=== PATIENT | male | born 1985 | race American Indian/Alaskan Native ===

== ENCOUNTER 2019-05-03 15:00 | Emergency (ER) | payer OTHER ==
[2019-05-03] MEDS ORDERED: METOCLOPRAMIDE 10 MG/2mL INJ ONE (15:55)
[2019-05-03] MEDS ORDERED: DIPHENHYDRAMINE 50 MG/ML VIAL ONE (15:56)
[2019-05-03] MEDS ORDERED: NA CHLORIDE 0.9% 500 ML ONE (15:56)
[2019-05-03] MEDS ORDERED: KETOROLAC 30 MG/ML INJ ONE (15:56)
--- NOTE | 2019-05-03 16:27 | RAD REPORT ---
EXAM DESCRIPTION: CT - Head Brain Wo Cont - 05/03/2019 4:12 pm CLINICAL HISTORY: headache COMPARISON: <Comparisons> TECHNIQUE: Axial 5 mm thick images of the head were obtained without IV contrast. All CT scans are performed using dose optimization technique as appropriate and may include automated exposure control or mA/KV adjustment according to patient size. FINDINGS: No intracranial hemorrhage, mass, edema or shift of mid-line structures. No acute infarcti on changes seen. No abnormal extra-axial fluid collections. Ventricles are normal. Mastoid air cells and visualized portions of the paranasal sinuses are clear. No acute bony findings. IMPRESSION: Negative non-contrast CT head examination.
--- NOTE | 2019-05-03 16:57 | ER ---
Nurse's Notes [facility] Name: Mannie Alonso Age: 33 yrs Sex: Male : 1985 Arrival Date: 05/03/2019 Time: 15:04 Bed 25 Private MD: Diagnosis: Influenza due to certain identified influenza viruses;Headache Presentation: 05/03 15:05 Presenting complaint: Patient states: i cant bear my headaches anymore, i [place], he gave me a b12 shot and antibiotic and it didn't feel me good and then today i can bear the pain, my cough is worse and worse and taking these medicines its getting worse and worse, the pain is in the back RIGHT side of my head and on my forehead and my sinuses. Transition of care: patient was not received from another setting of care. Onset of symptoms was May 03, 2019. Risk Assessment: Do you want to hurt yourself or someone else? Patient reports no desire to harm self or others. Initial Sepsis Screen: Does the patient meet any 2 criteria? HR > 90 bpm. No. Patient's initial sepsis screen is negative. Does the patient have a suspected source of infection? No. Patient's initial sepsis screen is negative. Care prior to arrival: None. 15:05 Method Of Arrival: Ambulatory tw2 15:05 Acuity: TAMI 3 tw2 Triage Assessment: 15:06 Headache History: Denies prior headaches. General: Appears in no apparent distress. tw2 Behavior is calm, cooperative, appropriate for age. Pain: Complains of pain in forehead, right side of the back of head and right occipital area Pain currently is 10 out of 10 on a pain scale. Pain began 2-3 days ago. it started tuesday Also complains of nausea. Neuro: Reports headache. Historical: - Allergies: 15:10 No Known Allergies; tw2 - Home Meds: 15:10 amoxicillin 500 mg Oral cap 1 cap every 8 hours [Active]; prednisone 10 mg Oral tab tw2 once daily [Active]; Virtussin AC 10-100 mg/5 mL oral liqd 10 mL every 4 hours [Active]; ibuprofen 600 mg Oral tab 1 tab 3 times per day [Active]; - PMHx: 15:10 None; tw2 - PSHx: 15:10 None; tw2 - Immunization history:: Adult Immunizations. - Coronavirus screen:: The patient has NOT traveled to [place], [place], or [place] in the past 14 days. The patient HAS traveled to [place], [place], or [place] in the past 14 days. The patient DOES HAVE a fever and/or cough. Mask placed on patient and transported to negative pressure isolation room. back from [facility] Mar 21, 2019. - Social history:: Smoking status: . Screenin:43 Abuse screen: Denies threats or abuse. Denies injuries from another. Nutritional mg2 screening: No deficits noted. Tuberculosis screening: No symptoms or risk factors identified. Fall Risk IV access (20 points). Assessment: 16:42 General: Appears in no apparent distress. comfortable, Behavior is calm, cooperative. mg2 Pain: Complains of pain in right occipital area and right side of the back of head and forehead. Neuro: Level of Consciousness is awake, alert, obeys commands, Oriented to person, place, time, situation. Neuro: Reports headache. Cardiovascular: Capillary refill < 3 seconds Patient's skin is warm and dry. Respiratory: Airway is patent Respiratory effort is even, unlabored, Respiratory pattern is regular, symmetrical. GI: No signs and/or symptoms were reported involving the gastrointestinal system. : No signs and/or symptoms were reported regarding the genitourinary system. EENT: No signs and/or symptoms were reported regarding the EENT system. Derm: Skin is intact, is healthy with good turgor, Skin is pink, warm \T\ dry. normal. Musculoskeletal: Circulation, motion, and sensation intact. Capillary refill < 3 seconds. 17:19 Reassessment: Patient appears in no apparent distress at this time. Patient states mg2 feeling better. Vital Signs: 15:07 BP 136 / 87; Pulse 108; Resp 18; Temp 98.5(O); Pulse Ox 97% on R/A; Weight 87.54 kg tw2 (R); Height 5 ft. 6 in. (167.64 cm); Pain 10/10; 16:43 BP 112 / 78; Pulse 89; Resp 18; Pulse Ox 100% on R/A; mg2 15:07 Body Mass Index 31.15 (87.54 kg, 167.64 cm) tw2 ED Course: 15:04 Patient arrived in ED. mr 15:05 Donta Tariq FNP-C is PHCP. la1 15:05 Danielito Pagan MD is Attending Physician. la1 15:06 Triage completed. tw2 15:06 Arm band placed on. tw2 15:49 Rcio Padilla, RN is Primary Nurse. mg2 15:50 No provider procedures requiring assistance completed. Inserted saline lock: 20 gauge ls4 in left antecubital area, using aseptic technique. 16:43 Patient has correct armband on for positive identification. mg2 17:19 IV discontinued, intact, bleeding controlled, No redness/swelling at site. Pressure mg2 dressing applied. Administered Medications: 16:00 Drug: NS 0.9% 500 ml Route: IV; Rate: bolus; Site: left antecubital; mg2 17:17 Follow up: Response: No adverse reaction; IV Status: Completed infusion; IV Intake: mg2 500ml 16:01 Drug: Benadryl 25 mg Route: IVP; Site: left antecubital; mg2 17:18 Follow up: Response: No adverse reaction; Marked relief of symptoms mg2 16:01 Drug: Reglan 10 mg Route: IVP; Site: left antecubital; mg2 17:18 Follow up: Response: No adverse reaction; Marked relief of symptoms mg2 16:02 Drug: TORadol - Ketorolac 15 mg Route: IVP; Site: left antecubital; mg2 17:18 Follow up: Response: No adverse reaction; Marked relief of symptoms mg2 Intake: 17:17 IV: 500ml; Total: 500ml. mg2 Outcome: 16:55 Discharge ordered by . la1 17:19 Discharged to home ambulatory, with family. mg2 17:19 Condition: good 17:19 Discharge instructions given to patient, family, Instructed on discharge instructions, follow up and referral plans. Demonstrated understanding of instructions, follow-up care. 17:20 Patient left the ED. mg2 Signatures: Maria Eugenia Tate Lee, JUNIOR SALES REPRESENTATIVE-C JUNIOR SALES REPRESENTATIVE-Cla1 Mary Anne Perry RN RN tw2 Rico Padilla, TANYA RN mg2 Lillian Strickland RN RN ls4
--- NOTE | 2019-05-03 16:57 | EDPHYS ---
Physician Documentation [facility] Name: Mannie Alonso Age: 33 yrs Sex: Male : 1985 Arrival Date: 05/03/2019 Time: 15:04 Bed 25 Private MD: ED Physician Danielito Pagan HPI: 05/03 15:42 This 33 yrs old Other Male presents to ER via Ambulatory with complaints of Headache. la1 15:42 The patient complains of pain to the occipital area radiating to forehead. The patient la1 describes the headache as aching, constant. Onset: The symptoms/episode began/occurred 3 day(s) ago. Associated signs and symptoms: Pertinent negatives: fever, malaise, nausea. Severity of symptoms: At its worst the pain was mild. Headache History: Denies prior headaches. The symptoms are alleviated by nothing. the symptoms are aggravated by nothing. The patient has not experienced similar symptoms in the past. Historical: - Allergies: 15:10 No Known Allergies; tw2 - Home Meds: 15:10 amoxicillin 500 mg Oral cap 1 cap every 8 hours [Active]; prednisone 10 mg Oral tab tw2 once daily [Active]; Virtussin AC 10-100 mg/5 mL oral liqd 10 mL every 4 hours [Active]; ibuprofen 600 mg Oral tab 1 tab 3 times per day [Active]; - PMHx: 15:10 None; tw2 - PSHx: 15:10 None; tw2 - Immunization history:: Adult Immunizations. - Coronavirus screen:: The patient has NOT traveled to [place], [place], or [place] in the past 14 days. The patient HAS traveled to [place], [place], or [place] in the past 14 days. The patient DOES HAVE a fever and/or cough. Mask placed on patient and transported to negative pressure isolation room. back from [facility] Mar 21, 2019. - Social history:: Smoking status: . ROS: 17:32 Constitutional: Negative for fever, chills, and weight loss, Eyes: Negative for injury, la1 pain, redness, and discharge, ENT: Negative for injury, pain, and discharge, Neck: Negative for injury, pain, and swelling, Cardiovascular: Negative for chest pain, palpitations, and edema. 17:32 Abdomen/GI: Negative for abdominal pain, nausea, vomiting, diarrhea, and constipation, Back: Negative for injury and pain, : Negative for injury, bleeding, discharge, and swelling, MS/Extremity: Negative for injury and deformity, Skin: Negative for injury, rash, and discoloration. 17:32 Endocrine: Negative for neck swelling, polydipsia, polyuria, polyphagia, and marked weight changes. 17:32 Respiratory: Positive for cough. 17:32 Neuro: Positive for headache. Exam: 17:33 Constitutional: This is a well developed, well nourished patient who is awake, alert, la1 and in no acute distress. Head/Face: Normocephalic, atraumatic. Eyes: Pupils equal round and reactive to light, extra-ocular motions intact. ENT: Nares patent. No nasal discharge, no septal abnormalities noted. Tympanic membranes are normal and external auditory canals are clear. Oropharynx with no redness, swelling, or masses, exudates, or evidence of obstruction, uvula midline. Mucous membranes moist. Chest/axilla: Normal chest wall appearance and motion. Nontender with no deformity. No lesions are appreciated. Cardiovascular: Regular rate and rhythm with a normal S1 and S2. No gallops, murmurs, or rubs. Normal PMI, no JVD. No pulse deficits. Respiratory: Lungs have equal breath sounds bilaterally, clear to auscultation Abdomen/GI: Soft, non-tender, Back: No costovertebral tenderness. Skin: Warm, dry with normal turgor. Normal color with no rashes, no lesions, and no evidence of cellulitis. Neuro: Awake and alert, GCS 15, oriented to person, place, time, and situation. Cranial nerves II-XII grossly intact. Motor strength 5/5 in all extremities. Sensory grossly intact. Cerebellar exam normal. Normal gait. Vital Signs: 15:07 BP 136 / 87; Pulse 108; Resp 18; Temp 98.5(O); Pulse Ox 97% on R/A; Weight 87.54 kg tw2 (R); Height 5 ft. 6 in. (167.64 cm); Pain 10/10; 16:43 BP 112 / 78; Pulse 89; Resp 18; Pulse Ox 100% on R/A; mg2 15:07 Body Mass Index 31.15 (87.54 kg, 167.64 cm) tw2 MDM: 15:16 Patient medically screened. la1 16:55 Data reviewed: vital signs, nurses notes, lab test result(s), radiologic studies, I la1 have discussed the patient's presentation/case with the attending Emergency Department Physician; and as a result, I will discharge patient. Data interpreted: Pulse oximetry: on room air is 100 %. Interpretation: normal. Counseling: I had a detailed discussion with the patient and/or guardian regarding: the historical points, exam findings, and any diagnostic results supporting the discharge/admit diagnosis, lab results, the need for outpatient follow up, a family practitioner, to return to the emergency department if symptoms worsen or persist or if there are any questions or concerns that arise at home. Special discussion: I discussed with the patient/guardian that the patient's current presentation does not indicate dosing of antibiotics. They should follow-up with their primary care provider and return if the symptoms persist or progress. 05/03 15:26 Order name: Flu la1 05/03 16:00 Order name: Flu ls4 05/03 15:26 Order name: CT Head Brain wo Cont la1 05/03 16:31 Order name: Influenza Screen (A ; Complete Time: 16:41 EDMS 05/03 15:26 Order name: IV; Complete Time: 15:59 la1 Administered Medications: 16:00 Drug: NS 0.9% 500 ml Route: IV; Rate: bolus; Site: left antecubital; mg2 17:17 Follow up: Response: No adverse reaction; IV Status: Completed infusion; IV Intake: mg2 500ml 16:01 Drug: Benadryl 25 mg Route: IVP; Site: left antecubital; mg2 17:18 Follow up: Response: No adverse reaction; Marked relief of symptoms mg2 16:01 Drug: Reglan 10 mg Route: IVP; Site: left antecubital; mg2 17:18 Follow up: Response: No adverse reaction; Marked relief of symptoms mg2 16:02 Drug: TORadol - Ketorolac 15 mg Route: IVP; Site: left antecubital; mg2 17:18 Follow up: Response: No adverse reaction; Marked relief of symptoms mg2 Disposition: 17:38 Co-signature as Attending Physician, Danielito Pagan MD. rn Disposition: 05/03/19 16:55 Discharged to Home. Impression: Influenza due to certain identified influenza viruses, Headache. - Condition is Stable. - Discharge Instructions: General Headache Without Cause, Influenza, Adult. - Work release form, Medication Reconciliation Form, Thank You Letter form. - Follow up: Private Physician; When: 2 - 3 days; Reason: Recheck today's complaints, Re-evaluation by your physician. - Problem is new. - Symptoms have improved. Signatures: Dispatcher [employer] EDMS Danielito Pagan MD MD rn Donta Tariq, SUTURE GAUGER-C SUTURE GAUGER-Cla1 Mary Anne Perry RN RN tw2 Rico Padilla RN RN mg2 Corrections: (The following items were deleted from the chart) 17:20 16:55 05/03/2019 16:55 Discharged to Home. Impression: Influenza due to certain mg2 identified influenza viruses; Headache. Condition is Stable. Forms are Medication Reconciliation Form, Thank You Letter, Antibiotic Education, Prescription Opioid Use. Follow up: Private Physician; When: 2 - 3 days; Reason: Recheck today's complaints, Re-evaluation by your physician. Problem is new. Symptoms have improved. la1
[2019-05-03 17:55] VITALS: TEMP 98.5
[2019-05-03 17:57] VITALS: BP 112/78; O2SAT 100
== END 2019-05-03 17:20 | disposition home or self-care (01) ==
LOC: ER 15:00
DX: J10.89 Influenza due to other identified influenza virus with other manifestations (principal)
CPT/HCPCS: 96361; 87804 ×2; 70450; 96375; 96374; 99283; J2765; J1200; J7040

== ENCOUNTER 2020-12-25 23:49 | Emergency (ER) | payer OTHER ==
[2020-12-26] MEDS ORDERED: KETOROLAC 30 MG/ML INJ ONE (01:57)
--- NOTE | 2020-12-26 02:10 | ER ---
Nurse's Notes [facility] Name: Mannie Alonso Age: 35 yrs Sex: Male : 1985 Arrival Date: 12/25/2020 Time: 23:52 Bed DIS2 Private MD: Diagnosis: Dorsalgia, unspecified Presentation: 12/26 00:13 Chief complaint: Patient states: non-radiating left upper back pain that started around sj1 1930 while sitting in chair, denies injury, took advil at 2220. Back pain worse with deep breathing. Coronavirus screen: Vaccine status: Patient reports receiving the 2nd dose of the covid vaccine. Date April 2020. Ebola Screen: Patient negative for fever greater than or equal to 101.5 degrees Fahrenheit, and additional compatible Ebola Virus Disease symptoms Patient denies exposure to infectious person. Patient denies travel to an Ebola-affected area in the 21 days before illness onset. Initial Sepsis Screen: Does the patient meet any 2 criteria? No. Patient's initial sepsis screen is negative. Does the patient have a suspected source of infection? No. Patient's initial sepsis screen is negative. Risk Assessment: Do you want to hurt yourself or someone else? Patient reports no desire to harm self or others. Onset of symptoms was December 25, 2020 at 19:30. 00:13 Method Of Arrival: Ambulatory sj1 00:13 Acuity: TAMI 3 sj1 01:45 Note Pt back from Xray, ambulatory. Medicated for pain per order. Pt given water. df1 Triage Assessment: 00:17 General: Appears in no apparent distress. Behavior is calm, cooperative, appropriate sj1 for age. Pain: Complains of pain in left upper back. Musculoskeletal: Capillary refill < 3 seconds, Range of motion: intact in all extremities. Historical: - Allergies: 00:17 No Known Allergies; sj1 - Home Meds: 00:17 Synjardy 5-1,000 mg oral tab 1 tab daily [Active]; atorvastatin oral once daily sj1 [Active]; - PMHx: 00:17 Diabetes mellitus; sj1 - Immunization history:: Adult Immunizations up to date, Client reports receiving the 2nd dose of the Covid vaccine, Client reports receiving the 1st dose of the Covid vaccine. - Social history:: Smoking status: Patient denies any tobacco usage or history of. Screenin:20 Abuse screen: Denies threats or abuse. Denies injuries from another. Nutritional sj1 screening: No deficits noted. Tuberculosis screening: No symptoms or risk factors identified. Fall Risk None identified. Assessment: 01:44 General: Appears in no apparent distress. Behavior is calm, cooperative. Pain: df1 Complains of pain in back Pain does not radiate. Neuro: No deficits noted. Neuro: No deficits noted. Cardiovascular: No deficits noted. Respiratory: Airway is patent Respiratory effort is even, unlabored, Respiratory pattern is regular, symmetrical. GI: No deficits noted. : No deficits noted. EENT: No deficits noted. Derm: No deficits noted. Musculoskeletal: No deficits noted. Vital Signs: 00:13 BP 135 / 86 RA Sitting (auto/reg); Pulse 97; Resp 17; Temp 98.4; Pulse Ox 98% on R/A; sj1 Weight 87.54 kg (R); Height 5 ft. 6 in. (167.64 cm) (R); Pain 7/10; 01:36 BP 124 / 80; Pulse 89; Resp 18; Pulse Ox 100% on R/A; oe 00:13 Body Mass Index 31.15 (87.54 kg, 167.64 cm) sj1 ED Course: 12/25 23:52 Patient arrived in ED. cf2 12/26 00:17 Triage completed. sj1 00:17 Arm band placed on right wrist. sj1 00:20 Patient has correct armband on for positive identification. sj1 00:54 Siddharth Morris PA is PHCP. cp 00:54 Michelle Owens MD is Attending Physician. cp 01:07 Katie Amaral is Primary Nurse. df1 01:07 No provider procedures requiring assistance completed. df1 01:33 XRAY Chest Pa And Lat (2 Views) Sent. df1 01:59 XRAY Chest Pa And Lat (2 Views) In Process Unspecified. EDMS Administered Medications: :44 Drug: Ketorolac 30 mg Route: IM; Site: left deltoid; df1 Outcome: 02:09 Discharge ordered by . cp 02:29 Patient left the ED. la1 Signatures: Dispatcher [employer] EDMS Donta Tariq, PARASITOLOGY TEACHER-C PARASITOLOGY TEACHER-Cla1 Page, SiddharthLUCAS cp, [place] oe [place], [place] cf2 Katie Amaral df1 Lenora Venegas, RN RN sj1
--- NOTE | 2020-12-26 02:10 | EDPHYS ---
Physician Documentation [facility] Name: Mannie Alonso Age: 35 yrs Sex: Male : 1985 Arrival Date: 12/25/2020 Time: 23:52 Bed DIS2 Private MD: ED Physician Michelle Owens HPI: 12/26 01:25 This 35 yrs old Other Male presents to ER via Ambulatory with complaints of Back Pain. cp 01:25 The patient presents with pain that is acute, with no known mechanism of injury. The cp symptoms are located in the left scapular area and left subscapular area. Onset: The symptoms/episode began/occurred today. The pain does not radiate. Associated signs and symptoms: Pertinent negatives: abdominal pain, chest pain, fever, headache, numbness, weakness, neck pain. The problem was sustained from unknown cause. Modifying factors: The patient symptoms are alleviated by remaining still, the patient symptoms are aggravated by twisting of torso. Historical: - Allergies: 00:17 No Known Allergies; sj1 - Home Meds: 00:17 Synjardy 5-1,000 mg oral tab 1 tab daily [Active]; atorvastatin oral once daily sj1 [Active]; - PMHx: 00:17 Diabetes mellitus; sj1 - Immunization history:: Adult Immunizations up to date, Client reports receiving the 2nd dose of the Covid vaccine, Client reports receiving the 1st dose of the Covid vaccine. - Social history:: Smoking status: Patient denies any tobacco usage or history of. ROS: 01:30 Eyes: Negative for injury, pain, redness, and discharge. cp 01:30 Constitutional: Negative for body aches, chills, fever, poor PO intake. 01:30 ENT: Negative for drainage from ear(s), ear pain, sore throat, difficulty swallowing, difficulty handling secretions. 01:30 Neck: Negative for pain with movement, pain at rest, stiffness. 01:30 Cardiovascular: Negative for chest pain, palpitations. 01:30 Respiratory: Negative for cough, shortness of breath, wheezing. 01:30 Abdomen/GI: Positive for burning, Negative for abdominal pain, nausea, vomiting, and diarrhea. 01:30 Back: Positive for pain at rest, pain with movement, Negative for injury or acute deformity, decreased range of motion. 01:30 Skin: Negative for rash. 01:30 Neuro: Negative for altered mental status, headache, syncope, weakness. 01:30 All other systems are negative. Exam: 01:35 Constitutional: The patient appears in no acute distress, alert, awake, comfortable, cp non-diaphoretic, non-toxic, well developed, well nourished. 01:35 Head/Face: Normocephalic, atraumatic. cp 01:35 Eyes: Periorbital structures: appear normal, Conjunctiva: normal, no exudate, no injection, Sclera: no appreciated abnormality, Lids and lashes: appear normal, bilaterally. 01:35 ENT: External ear(s): are unremarkable, Nose: is normal, Mouth: Lips: moist, Oral mucosa: moist, Posterior pharynx: Airway: no evidence of obstruction, patent. 01:35 Neck: C-spine: vertebral tenderness, is not appreciated, crepitus, is not appreciated, ROM/movement: is normal, is supple, without pain, no range of motions limitations. 01:35 Chest/axilla: Inspection: normal, Palpation: is normal, no crepitus, no tenderness. 01:35 Cardiovascular: Rate: normal, Rhythm: regular, Heart sounds: murmur, not appreciated. 01:35 Respiratory: the patient does not display signs of respiratory distress, Respirations: normal, no use of accessory muscles, no retractions, labored breathing, is not present, Breath sounds: are clear throughout, no decreased breath sounds, no stridor, no wheezing. 01:35 Abdomen/GI: Inspection: abdomen appears normal, Palpation: abdomen is soft and non-tender, in all quadrants. 01:35 Back: pain, that is very mild, of the left scapular area and left subscapular area, ROM is painful, with rotation to the right, muscle spasm, is not present. 01:35 Skin: cellulitis, is not appreciated, no rash present. 01:35 Neuro: Motor: moves all fours, strength is normal, Sensation: is normal, Gait: is steady, at a normal pace, without difficulty. Vital Signs: 00:13 BP 135 / 86 RA Sitting (auto/reg); Pulse 97; Resp 17; Temp 98.4; Pulse Ox 98% on R/A; sj1 Weight 87.54 kg (R); Height 5 ft. 6 in. (167.64 cm) (R); Pain 7/10; 01:36 BP 124 / 80; Pulse 89; Resp 18; Pulse Ox 100% on R/A; oe 00:13 Body Mass Index 31.15 (87.54 kg, 167.64 cm) sj1 MDM: 01:01 Patient medically screened. cp 01:35 Differential diagnosis: Basilar Pneumonia Cholelithiasis pneumothorax, muscle strain, cp muscle spasm, less likely pulmonary embolism, pneumonia. 02:08 Data reviewed: vital signs, nurses notes, radiologic studies, plain films. cp 02:08 Test interpretation: by ED physician or midlevel provider: plain radiologic studies. cp Counseling: I had a detailed discussion with the patient and/or guardian regarding: the historical points, exam findings, and any diagnostic results supporting the discharge/admit diagnosis, radiology results, to return to the emergency department if symptoms worsen or persist or if there are any questions or concerns that arise at home. Response to treatment: the patient's symptoms have mildly improved after treatment, and as a result, I will discharge patient. 12/26 01:17 Order name: XRAY Chest Pa And Lat (2 Views) cp Administered Medications: 01:44 Drug: Ketorolac 30 mg Route: IM; Site: left deltoid; df1 Disposition Summary: 12/26/20 02:09 Discharge Ordered Location: Home cp Problem: new cp Symptoms: have improved cp Condition: Stable cp Diagnosis - Dorsalgia, unspecified cp Followup: cp - With: Private Physician - When: 2 - 3 days - Reason: Worsening of condition Discharge Instructions: - Discharge Summary Sheet cp - Acute Back Pain, Adult cp Forms: - Medication Reconciliation Form cp - Thank You Letter cp - Antibiotic Education cp - Prescription Opioid Use cp Prescriptions: - Lidoderm 5 % Topical adhesive patch,medicated - apply 1 patch by TOPICAL route once daily; 1 box; Refills: 0, Product Selection cp Permitted - Cyclobenzaprine 10 mg Oral Tablet - take 1 tablet by ORAL route every 8 hours As needed; 20 tablet; Refills: 0, cp Product Selection Permitted - Diclofenac Sodium 75 mg Oral Tablet Sustained Release - take 1 tablet by ORAL route 2 times per day; 30 tablet; Refills: 0, Product cp Selection Permitted Signatures: Dispatcher [employer]ts[employer] EDDonta Bahena FNP-C SMALL ENGINE SPECIALIST-Cla1 Siddharth Morris PA PA cp Katie Amaral df1 Lenora Venegas RN RN sj1 Corrections: (The following items were deleted from the chart) 12/27 01:10 12/26 01:25 Constitutional: Negative for body aches, chills, fever, poor PO intake, cp cp 12/27 01:10 12/26 01:25 Cardiovascular: Negative for chest pain, palpitations, cp cp 12/27 01:10 12/26 01:25 Respiratory: Negative for cough, shortness of breath, wheezing, cp cp 12/27 01:12/26 01:25 Abdomen/GI: Positive for burning, Negative for abdominal pain, nausea, cp vomiting, and diarrhea, cp 12/27 01:12/26 01:25 Back: Positive for pain at rest, pain with movement, Negative for injury or cp acute deformity, decreased range of motion, cp 12/27 01:10 12/26 01:25 Eyes: Negative for injury, pain, redness, and discharge, cp cp 12/27 01:10 12/26 01:25 ENT: Negative for drainage from ear(s), ear pain, sore throat, difficulty cp swallowing, difficulty handling secretions, cp 12/27 01:10 12/26 01:25 Neck: Negative for pain with movement, pain at rest, stiffness, cp cp 12/27 01:10 12/26 01:25 Neuro: Negative for altered mental status, headache, syncope, weakness, cp cp 12/27 01:10 12/26 01:25 Skin: Negative for rash, cp cp 12/27 01:10 12/26 01:25 All other systems are negative, cp cp 12/27 01:14 12/26 02:28 This 35 yrs old Other Male presents to ER via Ambulatory with complaints of cp Back Pain. la1 12/27 01:15 12/26 02:35 Constitutional: Negative for body aches, chills, fever, poor PO intake, cp cp 12/27 01:15 12/26 02:35 Eyes: Negative for injury, pain, redness, and discharge, cp cp 12/27 01:15 12/26 02:35 Cardiovascular: Negative for chest pain, palpitations, cp cp 12/27 01:15 12/26 02:35 ENT: Negative for drainage from ear(s), ear pain, sore throat, difficulty cp swallowing, difficulty handling secretions, cp 12/27 00:12/26 02:35 Neck: Negative for pain with movement, pain at rest, stiffness, cp cp 12/27 00:12/26 02:35 Respiratory: Negative for cough, shortness of breath, wheezing, cp cp 12/27 00:12/26 02:35 Abdomen/GI: Positive for burning, Negative for abdominal pain, nausea, cp vomiting, and diarrhea, cp 12/27 00:12/26 02:35 Back: Positive for pain at rest, pain with movement, Negative for injury or cp acute deformity, decreased range of motion, cp 12/27 02:35 Neuro: Negative for altered mental status, headache, syncope, weakness, cp cp 12/27 00:12/26 02:35 Skin: Negative for rash, cp cp 12/27 00:12/26 02:35 All other systems are negative, cp cp
[2020-12-26 02:37] VITALS: TEMP 98.4
[2020-12-26 02:38] VITALS: BP 124/80; O2SAT 100
--- NOTE | 2020-12-26 07:21 | RAD REPORT ---
EXAM DESCRIPTION: RAD - Chest Pa And Lat (2 Views) - 12/26/2020 1:59 am CLINICAL HISTORY: upper back pain COMPARISON: No comparisons FINDINGS: Lines: None. Lungs: No evidence of edema or pneumonia. Pleural: No significant pleural effusions or pneumothorax. Cardiac: The heart size is within normal limits. Bones: No acute fractures. Other: IMPRESSION: No acute cardiopulmonary disease.
== END 2020-12-26 02:29 | disposition home or self-care (01) ==
LOC: ER 23:49
DX: M54.9 Dorsalgia, unspecified (principal); E11.9 Type 2 diabetes mellitus without complications
CPT/HCPCS: 71046; 96372; 99283

== ENCOUNTER 2020-12-29 17:40 | Emergency (ER) | payer OTHER ==
[2020-12-29 18:48] LABS: Protime INR 0.91
[2020-12-29 18:57] LABS: Absolute Lymphocytes (CBC) 2.7 K/uL (0.7-4.9); Basophils % 0.5 % (0-1.3); Hematocrit 40.7 % (39.6-49.0); Lymphocytes % 29.8 % (15.3-44.8); RBC Red Blood Cell Count 5.23 M/uL (4.33-5.43)
[2020-12-29 19:20] LABS: BUN Blood Urea Nitrogen 9 mg/dL (7-18); Bicarbonate 26 mmol/L (21-32); Glucose Level 188 mg/dL (74-106); Sodium Level 141 mmol/L (136-145); Troponin (Emerg Dept Use Only) < 0.02 ng/mL (0.0-0.045)
[2020-12-29 19:21] LABS: Magnesium 2.2 mg/dL (1.8-2.4); NT PRO-BNP < 5 pg/mL (<125); Potassium 4.1 mmol/L (3.5-5.1)
--- NOTE | 2020-12-29 19:22 | RAD REPORT ---
EXAM DESCRIPTION: RAD - Chest Single View - 12/29/2020 6:38 pm CLINICAL HISTORY: CHEST PAIN COMPARISON: <Comparisons> FINDINGS: Lines: None. Lungs: No evidence of edema or pneumonia. Pleural: No significant pleural effusions or pneumothorax. Cardiac: The heart size is within normal limits. Bones: No acute fractures. Other: IMPRESSION: No acute cardiopulmonary disease.
--- NOTE | 2020-12-29 19:48 | RAD REPORT ---
EXAM DESCRIPTION: US - UPPER EXTREMITY VENOUS UNILATE - 12/29/2020 7:38 pm CLINICAL HISTORY: Pain and swelling COMPARISON: None. TECHNIQUE: Real-time sonographic evaluation of the left upper extremity deep venous system was perfo rmed. FINDINGS: Normal compressibility, flow augmentation, phasic flow and spontaneous flow is identified in the left upper extremity deep venous system. No intraluminal filling defects seen. IMPRESSION: No DVT in the left upper extremity.
--- NOTE | 2020-12-29 20:03 | RAD REPORT ---
EXAM DESCRIPTION: CT - Chest For Pe Angio - 12/29/2020 7:56 pm CLINICAL HISTORY: CHEST PAIN COMPARISON: No comparisonsNo comparisons FINDINGS: Chest Wall: No suspicious thyroid nodules or pathologic lymphadenopathy. Lungs: No acute abnormality. Pleura: No significant effusions or pneumothorax. Mediastinum/keny: No pathologic lymphadenopathy. Pulmonary arteries/Aorta: No filling defect identified. No aortic aneurysm. Heart: No significant pericardial effusion. Normal heart size. Upper abdomen: No acute abnormality. Bones: No acute abnormality. All CT scans are performed using dose optimization technique as appropriate and may include automated exposure control or mA/KV adjustment according to patient size. IMPRESSION: Negative for pulmonary embolism. No acute findings in the chest.
--- NOTE | 2020-12-29 20:07 | ER ---
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 Coronavirus screen: At this time, the client does not indicate any symptoms associated with coronavirus-19. Ebola Screen: No symptoms or risks identified at this time. Initial Sepsis Screen: Does the patient meet any 2 criteria? No. Patient's initial sepsis screen is negative. Does the patient have a suspected source of infection? No. Patient's initial sepsis screen is negative. Risk Assessment: Do you want to hurt yourself or someone else? Patient reports no desire to harm self or others. Onset of symptoms was December 29, 2020 at 17:57. 17:56 Method Of Arrival: Ambulatory 17:56 Acuity: TAMI 3 hb Triage Assessment: 20:16 General: Appears in no apparent distress. Behavior is calm, cooperative, appropriate sj1 for age. Pain: Denies pain. EENT: No deficits noted. Neuro: No deficits noted. Cardiovascular: Rhythm is regular Chest pain chest pain resolved. Respiratory: No deficits noted. GI: No deficits noted. : No deficits noted. Derm: No deficits noted. Musculoskeletal: No deficits noted. Historical: - Allergies: 17:57 No Known Allergies; hb - Home Meds: 17:57 Synjardy 5-1,000 mg Oral tab 1 tab daily [Active]; atorvastatin Oral once daily hb [Active]; - PMHx: 17:57 diabetes mellitus; hb - Immunization history:: Client reports receiving the 2nd dose of the Covid vaccine. - Social history:: Smoking status: Patient denies any tobacco usage or history of. - Family history:: not pertinent. - Hospitalizations: : No recent hospitalization is reported. Screenin:12 Abuse screen: Denies threats or abuse. Denies injuries from another. Nutritional aj2 screening: No deficits noted. Tuberculosis screening: No symptoms or risk factors identified. Fall Risk None identified. Assessment: 18:12 Reassessment: Patient appears in no apparent distress at this time. Patient and/or aj2 family updated on plan of care and expected duration. Pain level reassessed. Patient is alert, oriented x 3, equal unlabored respirations, skin warm/dry/pink. Pain: Denies pain. Complains of pain in Denies pain \T\ this time. 18:12 Pain: Complains of pain in Report burning chest pain in the left anterior chest region aj2 1 hr prior to arrival. Denies pain \T\ this time. 18:50 Reassessment: Patient appears in no apparent distress at this time. Patient and/or aj2 family updated on plan of care and expected duration. Pain level reassessed. Patient is alert, oriented x 3, equal unlabored respirations, skin warm/dry/pink. Patient denies pain at this time. 20:02 Reassessment: Patient appears in no apparent distress at this time. Returned from CT cc4 via stretcher; monitoring resumed; voices no complaints. Vital Signs: 17:56 BP 149 / 84; Pulse 112; Resp 16; Temp 98.1; Pulse Ox 100% on R/A; Weight 88 kg; Height hb 5 ft. 6 in. (167.64 cm); Pain 3/10; 18:12 BP 131 / 82; Pulse 97; Resp 20; Temp 98.3; Pulse Ox 99% ; aj2 18:50 BP 124 / 86; Pulse 101; Resp 20; Temp 98.3; Pulse Ox 99% on R/A; aj2 20:02 BP 129 / 90; Pulse 98; Resp 20; Temp 98.4(TE); Pulse Ox 100% on R/A; cc4 17:56 Body Mass Index 31.31 (88.00 kg, 167.64 cm) hb Vitals: 18:50 Cardiac Rhythm Assessment Sinus tach. aj2 ED Course: 17:51 Patient arrived in ED. mr 17:52 Ortiz Drake DO is Private Physician. mr 17:57 Triage completed. hb 17:57 Arm band placed on. hb 18:01 Danielito Pagan MD is Attending Physician. rn 18:12 Munira Baca is Primary Nurse. aj2 18:12 No apparent distress. Resting quietly. aj2 18:12 Patient has correct armband on for positive identification. aj2 18:12 No provider procedures requiring assistance completed. aj2 18:37 Basic Metabolic Panel Sent. aj2 18:37 D-Dimer Sent. aj2 18:37 Basic Metabolic Panel Sent. aj2 18:37 CBC with Diff Sent. aj2 18:37 Magnesium Sent. aj2 18:37 NT PRO-BNP Sent. aj2 18:37 PT-INR Sent. aj2 18:37 Troponin (emerg Dept Use Only) Sent. aj2 18:38 XRAY Chest (1 view) In Process Unspecified. EDMS 18:50 No apparent distress. Resting quietly. aj2 18:50 Inserted saline lock: 20 gauge in right antecubital area, using aseptic technique. aj2 18:54 Fabian Stephen NP is PHCP. pm1 19:38 UPPER EXTREMITY VENOUS UNILATE In Process Unspecified. EDMS 19:49 CT Chest For PE Angio Sent. sj1 19:55 CT Chest For PE Angio In Process Unspecified. EDMS 20:25 IV discontinued, intact, bleeding controlled, No redness/swelling at site. sj1 Administered Medications: No medications were administered Outcome: 20:06 Discharge ordered by . pm1 20:25 Discharged to home ambulatory. sj1 20:25 Condition: stable 20:25 Discharge instructions given to patient, Instructed on discharge instructions, follow up and referral plans. Demonstrated understanding of instructions, follow-up care. 20:26 Patient left the ED. sj1 Signatures: Dispatcher [employer] TAVARESTX BebetoMaria Eugenia LatashaDanielito MD MD rn Marinas, Patrick, IRIS PACKING INSPECTOR pm1 Mari Guillaume RN RN hb Jenkins, Angelea aj2 Columba Cruz, TANYA RN cc4 Lenora Venegas RN RN sj1
--- NOTE | 2020-12-29 20:07 | EDPHYS ---
Physician Documentation [facility] Name: Mannie Alonso Age: 35 yrs Sex: Male : 1985 Arrival Date: 12/29/2020 Time: 17:51 Bed 23 Private MD: Cody Drakeh ED Physician Danielito Pagan HPI: 12/29 18:14 This 35 yrs old Other Male presents to ER via Ambulatory with complaints of Chest pain. rn 18:14 The patient or guardian reports chest pain that is located primarily in the anterior rn chest wall, left. The pain does not radiate. Associated signs and symptoms: Pertinent positives: palpitations, Pertinent negatives: abdominal pain, cough, diaphoresis, lightheadedness, shortness of breath, syncope, vomiting. The chest pain is described as sharp. Duration: The patient or guardian reports multiple episodes, that are intermittent, the episodes last approximately 1 second(s). Modifying factors: The symptoms are alleviated by nothing. the symptoms are aggravated by nothing. Severity of pain: At its worst the pain was moderate in the emergency department the pain has improved. The patient has not experienced similar symptoms in the past. The patient has been recently seen at the [facility] Emergency Department. Patient reports about to get in the shower when felt left chest pain, brief, lasted about a second, sharp and went away on its own. Got in the shower and felt at one other time. Denies any pain with deep inspiration. Recently seen here with sharp pain to the left scapular subscapular area. Denies any trauma. Denies any fever/cough/hemoptysis. Denies any history of DVT or PE.. Historical: - Allergies: 17:57 No Known Allergies; hb - Home Meds: 17:57 Synjardy 5-1,000 mg Oral tab 1 tab daily [Active]; atorvastatin Oral once daily hb [Active]; - PMHx: 17:57 diabetes mellitus; hb - Immunization history:: Client reports receiving the 2nd dose of the Covid vaccine. - Social history:: Smoking status: Patient denies any tobacco usage or history of. - Family history:: not pertinent. - Hospitalizations: : No recent hospitalization is reported. ROS: 18:14 Constitutional: Negative for fever, chills, and weight loss, Eyes: Negative for injury, rn pain, redness, and discharge, Neck: Negative for injury, pain, and swelling, Cardiovascular: Negative for edema Respiratory: Negative for cough, wheezing, and pleuritic chest pain, Abdomen/GI: Negative for abdominal pain, nausea, vomiting, diarrhea, and constipation, Back: Negative for injury and pain, : Negative for injury, bleeding, discharge, and swelling, MS/Extremity: Negative for injury and deformity, Skin: Negative for injury, rash, and discoloration, Neuro: Negative for headache, weakness, numbness, tingling, and seizure. Exam: 18:14 Constitutional: This is a well developed, well nourished patient who is awake, alert, rn and in no acute distress. Head/Face: Normocephalic, atraumatic. Eyes: Periorbital areas with no swelling, redness, or edema. Chest/axilla: Normal chest wall appearance and motion. Nontender with no deformity. No lesions are appreciated. Cardiovascular: Tachycardic, regular. No pulse deficits. Respiratory: Speaking full sentences, unlabored. No increased work of breathing, no retractions or nasal flaring. Abdomen/GI: Soft, non-tender Skin: Warm, dry MS/ Extremity: Pulses equal, no cyanosis. Neurovascular intact. Full, normal range of motion. Equal circumference. Neuro: Awake and alert, GCS 15 19:02 ECG was reviewed by the Attending Physician. rn Vital Signs: 17:56 BP 149 / 84; Pulse 112; Resp 16; Temp 98.1; Pulse Ox 100% on R/A; Weight 88 kg; Height hb 5 ft. 6 in. (167.64 cm); Pain 3/10; 18:12 BP 131 / 82; Pulse 97; Resp 20; Temp 98.3; Pulse Ox 99% ; aj2 18:50 BP 124 / 86; Pulse 101; Resp 20; Temp 98.3; Pulse Ox 99% on R/A; aj2 20:02 BP 129 / 90; Pulse 98; Resp 20; Temp 98.4(TE); Pulse Ox 100% on R/A; cc4 17:56 Body Mass Index 31.31 (88.00 kg, 167.64 cm) hb MDM: 18:01 Patient medically screened. rn 20:01 Differential diagnosis: DC, PE, Acute stress reaction, DVT. pm1 20:06 Data reviewed: vital signs. Data interpreted: Pulse oximetry: on room air is 99 %. pm1 Interpretation: normal. Counseling: I had a detailed discussion with the patient and/or guardian regarding: the historical points, exam findings, and any diagnostic results supporting the discharge/admit diagnosis, lab results, radiology results, the need for outpatient follow up, to return to the emergency department if symptoms worsen or persist or if there are any questions or concerns that arise at home. 20:06 ED course: Patient lost 8-month-old fetus in utero last week. Possible cause for acute pm1 stress reaction related chest pain. 12/29 18:13 Order name: Basic Metabolic Panel rn 12/29 18:13 Order name: CBC with Diff; Complete Time: 19:40 rn 12/29 18:13 Order name: Magnesium; Complete Time: 19:40 rn 12/29 18:13 Order name: NT PRO-BNP; Complete Time: 19:40 rn 12/29 18:13 Order name: PT-INR; Complete Time: 19:40 rn 12/29 18:13 Order name: Troponin (emerg Dept Use Only); Complete Time: 19:40 rn 12/29 18:13 Order name: XRAY Chest (1 view); Complete Time: 19:40 rn 12/29 18:13 Order name: EKG; Complete Time: 18:14 rn 12/29 18:13 Order name: Cardiac monitoring; Complete Time: 18:37 rn 12/29 18:13 Order name: D-Dimer; Complete Time: 19:40 rn 12/29 18:13 Order name: Basic Metabolic Panel; Complete Time: 19:40 EDMS 12/29 18:48 Order name: UPPER EXTREMITY VENOUS UNILATE; Complete Time: 20:01 EDMS 12/29 19:01 Order name: CT Chest For PE Angio; Complete Time: 20:05 rn 12/29 18:13 Order name: EKG - Nurse/Tech; Complete Time: 18:37 rn 12/29 18:13 Order name: IV Saline Lock; Complete Time: 18:37 rn 12/29 18:13 Order name: Labs collected and sent; Complete Time: 18:37 rn 12/29 18:13 Order name: O2 Per Protocol; Complete Time: 18:37 rn 12/29 18:13 Order name: O2 Sat Monitoring; Complete Time: 18:37 rn EC:02 Rate is 100 beats/min. Rhythm is regular. QRS [place] is Normal. ND interval is normal. rn QRS interval is normal. QT interval is normal. No Q waves. T waves are Normal. No ST changes noted. Clinical impression: NSR w/ Non-specific ST/T Changes. Interpreted by me. Reviewed by me. Administered Medications: No medications were administered Disposition: 12/30 07:00 Co-signature as Attending Physician, Danielito Pagan MD I agree with the assessment and rn plan of care. Patient seen by me, note written by me, handed off to IRIS Stephen for lab f/u and disposition.. Disposition Summary: 12/29/20 20:06 Discharge Ordered Location: Home pm1 Problem: new pm1 Symptoms: have improved pm1 Condition: Stable pm1 Diagnosis - Chest pain, unspecified pm1 Followup: pm1 - With: Emergency Department - When: As needed - Reason: Worsening of condition Followup: pm1 - With: Private Physician - When: 2 - 3 days - Reason: Recheck today's complaints, Continuance of care, Re-evaluation by your physician Discharge Instructions: - Discharge Summary Sheet pm1 - Nonspecific Chest Pain, Adult pm1 - Stress, Adult pm1 Forms: - Medication Reconciliation Form pm1 - Thank You Letter pm1 - Antibiotic Education pm1 - Prescription Opioid Use pm1 Signatures: Dispatcher [employer] EDMS Danielito Pagan MD MD rn Marinas, Patrick, NP PRODUCTION LINE SOLDERER pm1 Mari Guillaume RN RN Corrections: (The following items were deleted from the chart) 12/29 18:48 18:14 Extremity Venous Uni [email or web address] ordered. EDNV EDMS
[2020-12-29 20:52] VITALS: BP 129/90; TEMP 98.4; O2SAT 100
--- NOTE | 2020-12-30 18:10 | EKG ---
Test Date: 2020-12-29 Test Time: 18:24:55 Legal Paraprofessional: BANDAR MEASUREMENT RESULTS: Intervals: Rate: 100 MA: 140 QRSD: 90 QT: 328 QTc: 423 [place]: P: 64 MA: 140 QRS: 68 T: 66 INTERPRETIVE STATEMENTS: Normal sinus rhythm Nonspecific T wave abnormality Abnormal ECG No previous ECG available for comparison Electronically Signed On 12-30-20 18:05:59 CDT by Kevin Thibodeaux
== END 2020-12-29 20:26 | disposition home or self-care (01) ==
LOC: ER 17:40
DX: R07.89 Other chest pain (principal); E11.9 Type 2 diabetes mellitus without complications
CPT/HCPCS: 93005; 85025; 80048; 36415; 83735; 85610; 85379; 84484; 83880; 71275; 71045; 93971; 99284; Q9967